=== PATIENT | male | born 1985 | race Caucasian/White ===

== ENCOUNTER 2019-11-19 15:20 | Emergency (ER) | payer OTHER, SELFPAY ==
[2019-11-19 15:31] VITALS: BP 180/96; PULSE 71; RESP 16; TEMP 37; O2SAT 99; BMI 29.0
--- NOTE | 2019-11-19 15:41 | PC.NURSE ---
patient came into the ED reporting a few small blister like lesions on his penis. He does not report any pain or itching sensation.. Patient also denies changes in urinary function or frequency and also denies discharge from penis.
[2019-11-19 16:43] LABS: Bacteria Urine None Seen; RBC Urine None Seen (0-5/HPF)
[2019-11-19 17:06] LABS: Culture Indicated Urine Specimen Cultured; Squamous Epithelial Cell Urine 0-1 /HPF (0-5/HPF); WBC Urine 1-5/HPF (0-5/HPF)
--- NOTE | 2019-11-19 17:13 | ED.MALEGU ---
HPI - Male Genitourinary <YONG Katz - Last Filed: 11/19/19 17:41> General Chief complaint: Urogenital-Male Stated complaint: Outbreak in genital area Time Seen by Provider: 11/19/19 16:05 Source: patient Mode of arrival: Ambulatory Limitations: no limitations History of Present Illness HPI Narrative: The patient is a 34-year-old male current smoker who denies pertinent medical history presents with a chief complaint of blister-like lesions on his penis. He notes this yesterday. He states they are not specifically tender or itchy, but occasionally tingly. He does have a history of cold sores. He is concerned that he might have genital herpes. Denies any fevers nausea vomiting diarrhea abdominal pain chest pain shortness of breath or fevers. He denies any penile discharge, he denies any sexually transmitted infection concerns or exposures. He states he was treated for gonorrhea or chlamydia several years ago, but has since been for many years. He denies any dysuria urgency or frequency. He denies any abdominal pain or testicular pain. Related Data Previous Rx's Medication Instructions Recorded valacyclovir 1,000 mg PO BID #20 tab 11/19/19 Allergies Allergy/AdvReac Type Severity Reaction Status Date / Time No Known Drug Allergies Allergy Verified 11/19/19 15:31 Review of Systems <YONG Katz - Last Filed: 11/19/19 17:41> Review of Systems Narrative: GENERAL: Denies chills, fatigue, malaise, fever, sweats. HEENT: Denies sinus pain, ear pain, sore throat, difficulty swallowing, dizziness. RESPIRATORY: Denies dyspnea, cough, wheezing, hemoptysis, sputum. CARDIOVASCULAR: Denies chest pain, palpitations, orthopnea, edema, GASTROINTESTINAL: Denies nausea, vomiting, abdominal pain, diarrhea, constipation, melena. : See HPI MUSCULOSKELETAL: denies weakness, joint pain, or bony pain SKIN: See HPI NEUROLOGIC: Denies weakness, headache, numbness, change in speech, confusion, seizures, incoordination. PSYCHIATRIC: No concerning psychosocial issues. 12 point review of systems is negative except for those stated above Patient History <YONG Katz - Last Filed: 11/19/19 17:41> Social History Smoking Status: Current some day smoker Smoking Status: Current some day smoker tobacco type: cigarettes alcohol intake frequency: 0-2 drinks per day Substance Use Type: does not use Exam <YONG Katz - Last Filed: 11/19/19 17:41> Narrative Exam Narrative: GENERAL: This is a well-nourished, well-developed patient, in no acute distress HEAD: Atraumatic. Normocephalic. No temporal or scalp tenderness. EYES: Pupils equal round and reactive. Extraocular motions intact. No scleral icterus. No injection or drainage. ENT: Nose without bleeding, purulent drainage or septal hematoma. Throat without erythema, tonsillar hypertrophy or exudate. Uvula midline. Airway patent. NECK: Trachea midline. No JVD or lymphadenopathy. Supple, nontender, no meningeal signs. CARDIOVASCULAR: Regular rate and rhythm RESPIRATORY: No cough. Increased respiratory effort. No accessory muscle use. EXTREMITIES: No clubbing, cyanosis, or edema. No joint tenderness, effusion, or edema noted. BACK: Nontender without deformity or crepitance. No flank tenderness. NEURO: AOx3. SKIN: No rash or erythema on visible skin other than genital exam : Cluster vesicular lesions noted on anterior aspect of penile shaft. No obvious penile discharge or other rashes noted. No pain to palpation. Exam with Mani SALMON as assessment manager. Initial Vital Signs Initial Vital Signs: Vital Signs Temperature 98.6 F 11/19/19 15:31 Pulse Rate 71 11/19/19 15:31 Respiratory Rate 16 11/19/19 15:31 Blood Pressure 180/96 H 11/19/19 15:31 Pulse Oximetry 99 11/19/19 15:31 <Eddie Salter DO - Last Filed: 11/19/19 17:58> Initial Vital Signs Initial Vital Signs: Vital Signs Temperature 98.6 F 11/19/19 15:31 Pulse Rate 71 11/19/19 15:31 Respiratory Rate 16 11/19/19 15:31 Blood Pressure 180/96 H 11/19/19 15:31 Pulse Oximetry 99 11/19/19 15:31 Scores <YONG Katz - Last Filed: 11/19/19 17:41> GCS [place] coma scale eye opening: Spontaneous [place] coma scale verbal response: Orientated [place] coma scale motor response: Obey commands [place] coma scale total score: 15 Course <ROSEANN Katz - Last Filed: 11/19/19 17:41> Orders Ordered: ED Orders 11/19/19 16:40 Miscellaneous to [facility] Stat 11/19/19 16:42 Urine Culture Stat Urine Microscopic Stat Vital Signs Vital signs: Vital Signs - 8 hr 11/19/19 15:31 Temperature 98.6 F Pulse Rate 71 Respiratory Rate 16 Blood Pressure 180/96 H Pulse Oximetry 99 <Eddie Salter DO - Last Filed: 11/19/19 17:58> Orders Ordered: ED Orders 11/19/19 16:40 Miscellaneous to [facility] Stat 11/19/19 16:42 Urine Culture Stat Urine Microscopic Stat Vital Signs Vital signs: Vital Signs - 8 hr 11/19/19 15:31 Temperature 98.6 F Pulse Rate 71 Respiratory Rate 16 Blood Pressure 180/96 H Pulse Oximetry 99 MDM - Male Genitourinary <ROSEANN Katz - Last Filed: 11/19/19 17:41> Lab Data Labs: Lab Results 11/19/19 11/19/19 Range/Units 16:40 16:42 Urine RBC None seen (0-5/HPF) Urine WBC 1-5/hpf (0-5/HPF) Ur Squamous Epith Cells 0-1 /hpf (0-5/HPF) Urine Bacteria None seen (None) Ur Culture Indicated? Specimen cultured HSV Culture & Type Cancelled Urine Dip Bedside Urine Glucose Negative Bedside Urine Bilirubin - Negative Bedside Urine Ketone - Negative Urine Specific [place] 1.015 Bedside Urine Occult Blood - Negative Bedside Urine pH 7.5 Bedside Urine Protein - Negative Bedside Urine Urobilinogen - Negative Bedside Urine Nitrite - Negative Bedside Urine Leukocytes + 70 Esterase MDM Narrative Medical decision making narrative: The patient is a 34-year-old male who presents with a chief complaint of a penile rash. Exam is concerning for genital herpes. Place patient on valacyclovir. Viral culture is pending at this time, discussed that it takes a long time to come back. Encouraged follow-up with primary care provider in the next few days. Urine cultures pending at this time. Patient has no questions or concerns upon discharge and states understanding of return precautions as well as follow-up care. States understanding of holding up in sexual activity until rash is gone and he is cleared by his provider. <Eddie Salter DO - Last Filed: 11/19/19 17:58> Lab Data Labs: Lab Results 11/19/19 11/19/19 Range/Units 16:40 16:42 Urine RBC None seen (0-5/HPF) Urine WBC 1-5/hpf (0-5/HPF) Ur Squamous Epith Cells 0-1 /hpf (0-5/HPF) Urine Bacteria None seen (None) Ur Culture Indicated? Specimen cultured HSV Culture & Type Cancelled Urine Dip Bedside Urine Glucose Negative Bedside Urine Bilirubin - Negative Bedside Urine Ketone - Negative Urine Specific [place] 1.015 Bedside Urine Occult Blood - Negative Bedside Urine pH 7.5 Bedside Urine Protein - Negative Bedside Urine Urobilinogen - Negative Bedside Urine Nitrite - Negative Bedside Urine Leukocytes + 70 Esterase Discharge Plan Departure Patient Disposition: Home Clinical Impression: Rash of genitalia Discharge Date/Time: 11/19/19 17:31 Instructions: DI for Genital Herpes, DI for Genital Lesions Activity Restrictions/Additional Instructions: Thank you for trusting us with your care today. Given that your rash appears like genital herpes, we have elected to treat you prophylactically while your culture is being done. Please follow-up with primary care provider. As I discussed the culture takes a long time to come back, we will call you if the results are positive. Please come back to the emergency department for any acute concerns. Please hold off on sexual activity until the rash is gone in your cleared by your primary care provider. There is a urine culture pending at this time. If we need to place you on antibiotics for urinary tract infection, we will call you in 2-3 days. Prescriptions: New valacyclovir 1 gram tablet 1,000 mg PO BID Qty: 20 RF: 0 Referrals: [facility] [Provider Group] ED Sign-out <YONG Katz - Last Filed: 11/19/19 17:41> Cosign ED Attending Jose Attestation: I was immediately available in the department for consultation. This documentation has been reviewed and I agree with assessment and plan. Supervised by YONG Katz <Eddie Salter DO - Last Filed: 11/19/19 17:58> Cosign ED Attending Jose Attestation: Dr Salter Co-Sign Statement: I was available for consultation during this patient's emergency department visit. This chart is signed by myself for administrative purposes only. I did not have direct contact with this patient during this visit. They were seen independently by the APC.
== END 2019-11-19 17:31 | disposition home or self-care (01) ==
PROVIDERS: Emergency Provider Nurse Practitioner Family
DX: R21 Rash and other nonspecific skin eruption (principal)
CPT/HCPCS: 81003; 81015; 87086; 87252; 99282